=== PATIENT | female | born 1960 | race African-American/Black ===

== ENCOUNTER 2017-08-27 19:45 | Observation (INO) ==
[2017-08-27] MEDS ORDERED: SODIUM CHLORIDE 0.9% 500 ML IV STA (20:12)
[2017-08-27] MEDS ORDERED: ONDANSETRON 4 MG/2 ML VIAL IV STA (20:12)
[2017-08-27] MEDS ORDERED: ALUM/MAG/SIMETH/LIDO VISC 1:1 30 ML BOTTLE PO STA (20:12)
[2017-08-27] MEDS ORDERED: MORPHINE 4 MG/1 ML VIAL IV STA (20:12)
[2017-08-27] MEDS ORDERED: ASPIRIN 325 MG TABLET PO STA (20:12)
[2017-08-27] MEDS ORDERED: NITROGLYCERIN 2% OINT 1 INCH/GM PACK TOP STA (20:12)
[2017-08-27] MEDS ORDERED: NITROGLYCERIN 2% OINT 1 INCH/GM PACK TOP ONE (20:37)
[2017-08-27] MEDS ORDERED: ONDANSETRON 4 MG/2 ML VIAL ONE (20:37)
[2017-08-27] MEDS ORDERED: MORPHINE 4 MG/1 ML VIAL ONE (20:38)
[2017-08-27] MEDS ORDERED: ASPIRIN 325 MG TABLET ONE (20:38)
[2017-08-27] MEDS ORDERED: ALUM/MAG/SIMETH/LIDO VISC 1:1 30 ML BOTTLE PO ONE (20:38)
[2017-08-27 20:47] LABS: Basophils % 0.2 % (0.0-0.8); Eosinophils # 0.1 10*3/uL (0.0-0.87); Eosinophils % 0.9 % (0.00-10.9); Hematocrit 41.6 VOL% (35.7-47.0); Hemoglobin 13.8 GM/DL (12.0-16.0); Immature Granulocytes % 0.4 %; Immature Granulocytes Absolute 0.02 #; Lymphocytes # 1.9 10*3/uL (1.4-4.0); Mean Corpuscular HGB Conc 33.2 GM/DL (32-36); Mean Corpuscular Hemoglobin 30 PG (27-34); Mean Corpuscular Volume 90.6 FL (87-102); Mean Platelet Volume 10.4 FL (9.6-12.0); Monocytes # 0.4 10*3/uL (0.11-0.8); Monocytes % 8.1 % (1.7-12.7); Neutrophils # 3.1 10*3/uL (1.4-7.4); Neutrophils % 56.4 % (38.7-73.9); Platelet Count 258 T/CUMM (130-400); Red Blood Count 4.59 MC/CUMM (3.8-5.5); Red Cell Distribution Width 15.4 % (9.3-17.3); White Blood Count 5.4 T/CUMM (4-12)
[2017-08-27 20:59] LABS: INR 0.9
[2017-08-27 21:43] LABS: Alanine Aminotransferase 19 U/L (13-56); Alkaline Phosphatase 64 U/L (45-117); Aspartate Amino Transferase 11 U/L (0-37); Bilirubin,Total < 0.39 MG/DL (0.2-1.0); Calcium 9.1 MG/DL (8.5-10.1)
[2017-08-27 21:44] LABS: Albumin 3.9 G/DL (3.4-5.0); Blood Urea Nitrogen 20 MG/DL (7-18); Glucose 82 MG/DL (74-106); Osmolality,Calculated 284.1 MOS/KG (273-304); Sodium 142 MMOL/L (136-145); Total Protein 7.1 G/DL (6.4-8.3)
[2017-08-27] MEDS ORDERED: ENOXAPARIN 100 MG/ML SYRINGE SUBCUT STA (22:19)
[2017-08-27] MEDS ORDERED: ENOXAPARIN 60 MG/0.6 ML SYRINGE ONE (22:25)
[2017-08-27] MEDS ORDERED: KETOROLAC 30 MG/1 ML VIAL IV STA (23:30)
[2017-08-27] MEDS ORDERED: ACETAMINOPHEN 325 MG TABLET PO PRN (23:33)
[2017-08-27] MEDS ORDERED: KETOROLAC 30 MG/1 ML VIAL ONE (23:33)
[2017-08-27] MEDS ORDERED: MORPHINE 4 MG/1 ML VIAL IV PRN (23:33)
[2017-08-27] MEDS ORDERED: ONDANSETRON 4 MG/2 ML VIAL IV PRN (23:33)
[2017-08-27] MEDS ORDERED: NITROGLYCERIN SL 0.4 MG TABLET SL PRN (23:37)
[2017-08-28] MEDS ORDERED: diphenhydrAMINE CAP 25 MG CAPSULE ONE (01:16)
[2017-08-28] MEDS ORDERED: ZOLPIDEM 5 MG TABLET ONE (01:16)
[2017-08-28] MEDS ORDERED: valACYclovir 500 MG TABLET ONE ×2 (01:16→09:37)
[2017-08-28] MEDS ORDERED: METOPROLOL TARTRATE 25 MG TABLET ONE (01:19)
[2017-08-28] MEDS: clonazePAM 0.5 MG TABLET PO SCH ×3 (01:20→21:20)
[2017-08-28] MEDS: METOPROLOL SUCCINATE XL 25 MG TABLET PO SCH ×3 (01:20→21:20)
[2017-08-28] MEDS: valACYclovir 500 MG TABLET PO SCH ×3 (01:20→21:20)
[2017-08-28] MEDS: diphenhydrAMINE CAP 25 MG CAPSULE PO SCH ×2 (01:32→21:21)
[2017-08-28] MEDS: ZALEPLON 5 MG CAPSULE PO SCH ×2 (01:36→21:20)
[2017-08-28] MEDS ORDERED: ZOLPIDEM 5 MG TABLET PO STA (01:38)
[2017-08-28 05:09] LABS: Basophils % 0.5 % (0.0-0.8); Eosinophils # 0.1 10*3/uL (0.0-0.87); Eosinophils % 1.2 % (0.00-10.9); Hematocrit 40.3 VOL% (35.7-47.0); Hemoglobin 13.1 GM/DL (12.0-16.0); Immature Granulocytes % 0.2 %; Immature Granulocytes Absolute 0.01 #; Lymphocytes # 2.1 10*3/uL (1.4-4.0); Lymphocytes % 49.3 % (21.3-54.2); Mean Corpuscular HGB Conc 32.5 GM/DL (32-36); Mean Corpuscular Hemoglobin 30 PG (27-34); Mean Corpuscular Volume 92.4 FL (87-102); Mean Platelet Volume 10.7 FL (9.6-12.0); Monocytes # 0.3 10*3/uL (0.11-0.8); Monocytes % 8.1 % (1.7-12.7); Neutrophils # 1.7 10*3/uL (1.4-7.4); Neutrophils % 40.7 % (38.7-73.9); Platelet Count 249 T/CUMM (130-400); Red Blood Count 4.36 MC/CUMM (3.8-5.5); Red Cell Distribution Width 15.5 % (9.3-17.3); White Blood Count 4.2 T/CUMM (4-12)
[2017-08-28 05:35] LABS: Calcium 8.2 MG/DL (8.5-10.1); Potassium 4.2 MMOL/L (3.5-5.1); Risk Ratio 1.54; Thyroid Stimulating Hormone 1.23 uIU/ml (0.358-3.74); VLDL CHOLESTEROL 7.8 MG/DL
[2017-08-28] MEDS ORDERED: PANTOPRAZOLE 40 MG TABLET PO ONE (08:49)
[2017-08-28] MEDS: PANTOPRAZOLE 40 MG TABLET PO SCH (08:53)
[2017-08-28] MEDS: ASPIRIN EC 81 MG TABLET PO SCH (09:22)
[2017-08-28] MEDS: CHOLECALCIFEROL 1,000 UNIT TABLET PO SCH (09:22)
[2017-08-28] MEDS: MULTIVITAMIN (CENTRUM) TABLET PO SCH (09:22)
[2017-08-28] MEDS: ESCITALOPRAM 10 MG TABLET PO SCH (09:23)
[2017-08-28] MEDS: OMEGA 3 ACID ETHYL ESTERS 1 GM CAPSULE PO SCH (09:24)
[2017-08-28] MEDS: VITAMIN E 400 UNIT CAPSULE PO SCH (09:24)
[2017-08-28] MEDS ORDERED: ENOXAPARIN 40 MG/0.4 ML SYRINGE SUBCUT SCH (20:00)
[2017-08-28] MEDS: KETOROLAC 15 MG/1 ML VIAL IV PRN (22:18)
[2017-08-29] MEDS: CHOLECALCIFEROL 1,000 UNIT TABLET PO SCH (08:28)
[2017-08-29] MEDS: OMEGA 3 ACID ETHYL ESTERS 1 GM CAPSULE PO SCH (08:28)
[2017-08-29] MEDS: VITAMIN E 400 UNIT CAPSULE PO SCH (08:28)
[2017-08-29] MEDS: PANTOPRAZOLE 40 MG TABLET PO SCH (08:29)
[2017-08-29] MEDS: clonazePAM 0.5 MG TABLET PO SCH (08:29)
[2017-08-29] MEDS: MULTIVITAMIN (CENTRUM) TABLET PO SCH (08:29)
[2017-08-29] MEDS: ESCITALOPRAM 10 MG TABLET PO SCH (08:29)
[2017-08-29] MEDS: METOPROLOL SUCCINATE XL 25 MG TABLET PO SCH (08:29)
[2017-08-29] MEDS: valACYclovir 500 MG TABLET PO SCH (08:29)
[2017-08-29] MEDS: ASPIRIN EC 81 MG TABLET PO SCH (08:29)
[2017-08-29] MEDS: KETOROLAC 15 MG/1 ML VIAL IV PRN (08:34)
[2017-08-29 16:41] VITALS: BP 129/87
== END 2017-08-29 17:50 | disposition home or self-care (01) ==
LOC: N.ED 19:45 → N.EDINP 19:45 → N.TELEN 08-28 10:39
PROVIDERS: ADMIT Internal Medicine; ATTEND Internal Medicine

== ENCOUNTER 2022-04-17 08:47 | Observation (INO) ==
[2022-04-17] MEDS ORDERED: methylPREDNISolone SOD SUC 125 MG/2 ML VIAL IV STA (09:05)
[2022-04-17] MEDS ORDERED: LEVALBUTEROL 1.25 MG/3 ML NEB RESP TX STA ×2 (09:09→10:13)
[2022-04-17 09:12] LABS: Eosinophils % 0.2 % (0.00-10.9); Hematocrit 47.4 VOL% (35.7-47.0); Hemoglobin 15.2 GM/DL (12.0-16.0); Immature Granulocytes % 0.2 %; Immature Granulocytes Absolute 0.01 #; Lymphocytes # 1.5 10*3/uL (1.4-4.0); Lymphocytes % 36.7 % (21.3-54.2); Mean Corpuscular HGB Conc 32.1 GM/DL (32-36); Mean Corpuscular Volume 90.5 FL (87-102); Mean Platelet Volume 10.2 FL (9.6-12.0); Monocytes # 0.3 10*3/uL (0.11-0.8); Monocytes % 6.2 % (1.7-12.7); Neutrophils % 56.7 % (38.7-73.9); Platelet Count 222 T/CUMM (130-400); Red Blood Count 5.24 MC/CUMM (3.8-5.5); Red Cell Distribution Width 15.8 % (9.3-17.3); White Blood Count 4.2 T/CUMM (4-12)
[2022-04-17] MEDS ORDERED: ALBUTEROL NEB SOLN 5 MG/ML 20 ML/BOTTLE CONT NEB SCH (09:30)
[2022-04-17 09:35] LABS: Albumin 3.8 G/DL (3.4-5.0); Bilirubin,Total 0.4 MG/DL (0.20-1.00); Calcium 9.3 MG/DL (8.5-10.1); Osmolality,Calculated 287.1 MOS/KG (273-304); Potassium 3.4 MMOL/L (3.5-5.1)
[2022-04-17 11:35] LABS: Arterial Base Excess iSTAT 0 MMOL/L (-2.5-2.5); Arterial Bicarbonate iSTAT 22.7 MMOL/L (20-26); Arterial O2 Saturation iSTAT 89 % (95-100); Arterial PCO2 iSTAT 31 MM HG (35-48); Arterial PO2 iSTAT 52 MM HG (80-95); Arterial Total CO2 iSTAT 24 MMO/L (23-27); Arterial pH iSTAT 7.471 (7.35-7.45)
[2022-04-17] MEDS ORDERED: NICOTINE 21 MG/24 HR PATCH TRANSDERM PRN (12:23)
[2022-04-17] MEDS ORDERED: guaiFENesin/DM ER 600-30 MG TABLET PO PRN (12:23)
[2022-04-17] MEDS ORDERED: ONDANSETRON 4 MG/2 ML VIAL IV PRN (12:23)
[2022-04-17] MEDS ORDERED: POTASSIUM CHLORIDE 20 MEQ TABLET PO STA (12:26)
[2022-04-17 12:56] LABS: Folate 8.63 NG/ML (5.38-24.0); Vitamin B12 537 PG/ML (211-911)
[2022-04-17] MEDS: CHOLECALCIFEROL 5,000 UNIT TABLET PO SCH (13:22)
[2022-04-17] MEDS: LACTATED RINGERS 1,000 ML IV SCH ×2 (13:22→22:11)
[2022-04-17] MEDS: ALBUTEROL/IPRATROPIUM 3 ML NEB RESP TX SCH (14:09)
[2022-04-17 14:11] LABS: Free T4 (Free Thyroxine) 0.93 NG/DL (0.76-1.46); Thyroid Stimulating Hormone 0.825 uIU/ml (0.358-3.74)
[2022-04-17] MEDS: cefTRIAXone 1,000 MG in SODIUM CHLORIDE 0.9% 100 ML IV SCH (16:29)
[2022-04-17] MEDS ORDERED: ENOXAPARIN 40 MG/0.4 ML SYRINGE SUBCUT SCH (21:00)
[2022-04-17] MEDS: ACETAMINOPHEN 325 MG TABLET PO PRN (21:57)
[2022-04-18] MEDS ORDERED: IBUPROFEN 800 MG TABLET PO ONE (00:22)
[2022-04-18] MEDS: ALBUTEROL/IPRATROPIUM 3 ML NEB RESP TX SCH ×3 (00:55→08:19)
[2022-04-18 06:14] LABS: Hematocrit 44.3 VOL% (35.7-47.0); Hemoglobin 13.9 GM/DL (12.0-16.0); Immature Granulocytes % 0.5 %; Immature Granulocytes Absolute 0.04 #; Lymphocytes # 1.5 10*3/uL (1.4-4.0); Lymphocytes % 18.7 % (21.3-54.2); Mean Corpuscular HGB Conc 31.4 GM/DL (32-36); Mean Corpuscular Volume 90.8 FL (87-102); Mean Platelet Volume 10.5 FL (9.6-12.0); Monocytes # 0.7 10*3/uL (0.11-0.8); Monocytes % 8.2 % (1.7-12.7); Neutrophils % 72.6 % (38.7-73.9); Platelet Count 213 T/CUMM (130-400); Red Blood Count 4.88 MC/CUMM (3.8-5.5); Red Cell Distribution Width 15.9 % (9.3-17.3); White Blood Count 8.1 T/CUMM (4-12)
[2022-04-18 06:38] LABS: Calcium 8.7 MG/DL (8.5-10.1); Osmolality,Calculated 285.8 MOS/KG (273-304); Potassium 3.8 MMOL/L (3.5-5.1)
[2022-04-18] MEDS ORDERED: NITROGLYCERIN SL 0.4 MG TABLET SL PRN (07:59)
[2022-04-18] MEDS: CHOLECALCIFEROL 5,000 UNIT TABLET PO SCH (08:19)
[2022-04-18] MEDS ORDERED: ASPIRIN EC 81 MG TABLET PO SCH (09:00)
[2022-04-18] MEDS ORDERED: METOPROLOL SUCCINATE XL 25 MG TABLET PO SCH (09:00)
[2022-04-18] MEDS ORDERED: predniSONE 20 MG TABLET PO SCH (09:00)
[2022-04-18] MEDS ORDERED: ESCITALOPRAM 10 MG TABLET PO SCH (09:00)
[2022-04-18] MEDS ORDERED: AZITHROMYCIN 250 MG TABLET PO SCH (09:00)
[2022-04-18] MEDS: LACTATED RINGERS 1,000 ML IV SCH (10:44)
[2022-04-18] MEDS: ACETAMINOPHEN 325 MG TABLET PO PRN (11:42)
[2022-04-18 12:18] VITALS: BP 134/81
[2022-04-18] MEDS: cefTRIAXone 1,000 MG in SODIUM CHLORIDE 0.9% 100 ML IV SCH (13:27)
== END 2022-04-18 14:50 | disposition home or self-care (01) ==
LOC: N.EDINP 08:47 → N.ED 08:47 → N.2W 12:45
PROVIDERS: ADMIT Internal Medicine; ATTEND Internal Medicine